=== PATIENT | female | born 1960 | race Caucasian/White ===

== ENCOUNTER 2022-07-10 22:23 | Emergency (ER) | payer OTHER ==
--- OUTSIDE RECORDS SUMMARY | 2022-07-10 22:29 | EXTERNAL MEDICAL SUMMARY RPT | Continuity of Care Document ---
:1960 Author Organization [facility] Address [address] [place] [address] Phone Care Team Providers Name Role Phone Unavailable Unavailable Unavailable Nalty, Alexa Unavailable Unavailable Allergies and Intolerances date description facility type (no date) [facility] (unknown) Encounters No information. Functional Status No information. Immunizations No information. Medications date description facility 2022-06-22 00:00 [facility] 2022-06-22 00:[address] [facility] 2022-06-22 00:[address] [facility] 2022-06-22 00:00 [facility]22-06-22 00[facility]00 [facility] Problems date description facility 2022-06-19 09:44 Encounter for preprocedural [facility] examination 2022-06-19 09:44 Contact with and (suspected) exposure [place] [id number] 2022-06-20 01:36 Encounter for preprocedural [facility] examination 2022-06-20 01:36 Contact with and (suspected) exposure [place] [id number] 2022-06-22 11:10 Personal history of colonic polyps [facility] 2022-06-22 11:14 Personal history of colonic polyps [facility] 2022-06-22 11:41 Personal history of colonic polyps [facility] 2022-06-22 14:30 Personal history of colonic polyps [facility] 2022-06-22 14:44 Personal history of colonic [facility]ps [facility] Procedures date description facility 2022-06-22 00:[address] [facility] Results/Labs test date author facility value unit interpret ation Result panel 1 (unknown) (no date) (unknown) [facility]) Result panel 2 (unknown) (no (unknown) (unknown) (no value) (units (unk nown) date) unknown) (unknown) (no (unknown) (unknown) (1) Encounter (units ( unknown) date) for preoperative unknown) screening laboratory testing for COVID-19 virus: (unknown) (no (unknown) (unknown) COVID-19 (units (u nknown) date) unknown) (unknown) (no (unknown) (unknown) 06/19/22 (units (unkno wn) date) unknown) (unknown) (no (unknown) (unknown) [id number] (units (unkno wn) date) unknown) (unknown) (no (unknown) (unknown) Age/Sex: 62 / F (units (unknown) date) Date of Service: unknown) (unknown) (no (unknown) (unknown) [place], [place] (units ( unknown) date) [id number] unknown) (unknown) (no (unknown) (unknown) Attending Dr: (units ( unknown) date) Zacarias Mckeon MD unknown) (unknown) (no (unknown) (unknown) Code(s): (units (unkno wn) date) unknown) (unknown) (no (unknown) (unknown) : 1960 (units (unknown) date) Acct:[id number] unknown) (unknown) (no (unknown) (unknown) Dept at (units (unkno wn) date) . unknown) (unknown) (no (unknown) (unknown) Documented By: (units (unknown) date) Zacarias Mckeon MD unknown) 06/19/22 0941 (unknown) (no (unknown) (unknown) Draft (units (unkno wn) date) unknown) (unknown) (no (unknown) (unknown) Evaluation/Scree (units (unknown) date) arleen for possible unknown) COVID-19 completed?: Yes- COVID-19 CPT (unknown) (no (unknown) (unknown) Intake Note: (units (u nknown) date) unknown) (unknown) (no (unknown) (unknown) Intake performed (units (unknown) date) by: Yecenia Arroyo unknown) (unknown) (no (unknown) (unknown) Intake (units (unkno wn) date) unknown) (unknown) (no (unknown) (unknown) Intake- Clincial (units (unknown) date) Staff unknown) (unknown) (no (unknown) (unknown) [facility] (units (unknown) date) unknown) (unknown) (no (unknown) (unknown) Loc: [facility] (units (unkno wn) date) unknown) (unknown) (no (unknown) (unknown) Note (units (unkno wn) date) unknown) (unknown) (no (unknown) (unknown) Nurse Office (units (u nknown) date) Visit unknown) (unknown) (no (unknown) (unknown) Patient: (units (unkno wn) date) Molly Wyman unknown) MR#: [id number] (unknown) (no (unknown) (unknown) Pt came in for a (units (unknown) date) pre procedure unknown) covid test. Denied any covid symptoms. Explained (unknown) (no (unknown) (unknown) Reason For Visit (units (unknown) date) unknown) (unknown) (no (unknown) (unknown) Signed By: (units (unk nown) date) unknown) (unknown) (no (unknown) (unknown) This note may (units ( unknown) date) have been all or unknown) partially generated using voice recognition (unknown) (no (unknown) (unknown) Visit Diagnosis (units (unknown) date) unknown) (unknown) (no (unknown) (unknown) Visit Reasons: (units (unknown) date) [facility] unknown) (unknown) (no (unknown) (unknown) Z01.812 - (units (unkn own) date) Encounter for unknown) preprocedural laboratory examination; Z20.822 - Contact (unknown) (no (unknown) (unknown) covid test to (units ( unknown) date) pt. [place] unknown) well. (unknown) (no (unknown) (unknown) have occurred. (units (unknown) date) If there are any unknown) questions, please contact the Medical Records (unknown) (no (unknown) (unknown) may occur. (units (unk nown) date) Occasional unknown) wrong-word or 'sound-alike' substitutions may have (unknown) (no (unknown) (unknown) occurred due to (units (unknown) date) the inherent unknown) limitations of voice recognition software. Please (unknown) (no (unknown) (unknown) read the note (units ( unknown) date) carefully and unknown) recognize, using context, where these substitutions (unknown) (no (unknown) (unknown) software. 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 (unknown) (no (unknown) (unknown) with and (units (unkno wn) date) (suspected) unknown) exposure to covid-19 Result panel 3 (unknown) (no date) (unknown) (unknown) Negative (units (unkn own) unknown) (unknown) (no date) (unknown) (unknown) Negative (units (unkn own) unknown) Result panel 4 (unknown) (no (unknown) (unknown) (no value) (units (unk nown) date) unknown) (unknown) (no (unknown) (unknown) (1) Encounter (units ( unknown) date) for preoperative unknown) screening laboratory testing for COVID-19 virus: (unknown) (no (unknown) (unknown) COVID-19 (units (u nknown) date) unknown) (unknown) (no (unknown) (unknown) 06/19/22 1149 (units ( unknown) date) unknown) (unknown) (no (unknown) (unknown) 06/19/22 (units (unkno wn) date) unknown) (unknown) (no (unknown) (unknown) [id number] (units (unkno wn) date) unknown) (unknown) (no (unknown) (unknown) Age/Sex: 62 / F (units (unknown) date) Date of Service: unknown) (unknown) (no (unknown) (unknown) [place], [place] (units ( unknown) date) [address] unknown) (unknown) (no (unknown) (unknown) Attending Dr: (units ( unknown) date) Zacarias Mckeon MD unknown) (unknown) (no (unknown) (unknown) Code(s): (units (unkno wn) date) unknown) (unknown) (no (unknown) (unknown) : 1960 (units (unknown) date) Acct:[id number] unknown) (unknown) (no (unknown) (unknown) Dept at (units (unkno wn) date) . unknown) (unknown) (no (unknown) (unknown) Documented By: (units (unknown) date) Zacarias Mckeon MD unknown) 06/19/22 0941 (unknown) (no (unknown) (unknown) Evaluation/Scree (units (unknown) date) arleen for possible unknown) COVID-19 completed?: Yes- COVID-19 CPT (unknown) (no (unknown) (unknown) Intake Note: (units (u nknown) date) unknown) (unknown) (no (unknown) (unknown) Intake performed (units (unknown) date) by: Yecenia Arroyo unknown) (unknown) (no (unknown) (unknown) Intake (units (unkno wn) date) unknown) (unknown) (no (unknown) (unknown) Intake- Clincial (units (unknown) date) Staff unknown) (unknown) (no (unknown) (unknown) [facility] (units (unknown) date) unknown) (unknown) (no (unknown) (unknown) Loc: [facility] (units (unkno wn) date) unknown) (unknown) (no (unknown) (unknown) Note (units (unkno wn) date) unknown) (unknown) (no (unknown) (unknown) Nurse Office (units (u nknown) date) Visit unknown) (unknown) (no (unknown) (unknown) Patient: (units (unkno wn) date) Molly Wyman unknown) MR#: [id number] (unknown) (no (unknown) (unknown) Pt came in for a (units (unknown) date) pre procedure unknown) covid test. Denied any covid symptoms. Explained (unknown) (no (unknown) (unknown) Reason For Visit (units (unknown) date) unknown) (unknown) (no (unknown) (unknown) Signed By: (units (unk nown) date) <Electronically unknown) signed by Zacarias Mckeon MD> (unknown) (no (unknown) (unknown) Signed (units (unkno wn) date) unknown) (unknown) (no (unknown) (unknown) This note may (units ( unknown) date) have been all or unknown) partially generated using voice recognition (unknown) (no (unknown) (unknown) Visit Diagnosis (units (unknown) date) unknown) (unknown) (no (unknown) (unknown) Visit Reasons: (units (unknown) date) [facility] unknown) (unknown) (no (unknown) (unknown) Z01.812 - (units (unkn own) date) Encounter for unknown) preprocedural laboratory examination; Z20.822 - Contact (unknown) (no (unknown) (unknown) covid test to (units ( unknown) date) pt. [place] unknown) well. (unknown) (no (unknown) (unknown) have occurred. (units (unknown) date) If there are any unknown) questions, please contact the Medical Records (unknown) (no (unknown) (unknown) may occur. (units (unk nown) date) Occasional unknown) wrong-word or 'sound-alike' substitutions may have (unknown) (no (unknown) (unknown) occurred due to (units (unknown) date) the inherent unknown) limitations of voice recognition software. Please (unknown) (no (unknown) (unknown) read the note (units ( unknown) date) carefully and unknown) recognize, using context, where these substitutions (unknown) (no (unknown) (unknown) software. 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 (unknown) (no (unknown) (unknown) with and (units (unkno wn) date) (suspected) unknown) exposure to covid-19 Result panel 5 (unknown) (no date) (unknown) (unknown) (no value) (units 191 39-5 unknown) (unknown) (no date) (unknown) (unknown) (no value) (units 226 33-2 unknown) (unknown) (no date) (unknown) (unknown) (no value) (units 226 34-0 unknown) (unknown) (no date) (unknown) (unknown) (no value) (units 226 37-3 unknown) (unknown) (no date) (unknown) (unknown) (no value) (units 495 60-6 unknown) (unknown) (no date) (unknown) (unknown) (no value) (units 527 97-8 unknown) (unknown) (no date) (unknown) (unknown) (no value) (units (un known) unknown) (unknown) (no date) (unknown) (unknown) (no value) (units (un known) unknown) (unknown) (no date) (unknown) (unknown) (no value) (units (un known) unknown) (unknown) (no date) (unknown) (unknown) (no value) (units (un known) unknown) (unknown) (no date) (unknown) (unknown) (no value) (units (un known) unknown) (unknown) (no date) (unknown) (unknown) (no value) (units (un known) unknown) (unknown) (no date) (unknown) (unknown) Comment: (units 33672 -1 unknown) (unknown) (no date) (unknown) (unknown) Comment: (units (unkn own) unknown) Result panel 6 (unknown) (no (unknown) (unknown) (no value) (units (unk nown) date) unknown) (unknown) (no (unknown) (unknown) (Victoza 3-Petey) (units (unknown) date) unknown) (unknown) (no (unknown) (unknown) (past 8 hours): (units (unknown) date) unknown) (unknown) (no (unknown) (unknown) 06/22/22 1219 (units ( unknown) date) unknown) (unknown) (no (unknown) (unknown) 06/22/22 (units (unkno wn) date) unknown) (unknown) (no (unknown) (unknown) [id number] (units (unkno wn) date) unknown) (unknown) (no (unknown) (unknown) 11:39 (units (unkno wn) date) unknown) (unknown) (no (unknown) (unknown) 62-year-old (units (un known) date) female with a unknown) personal history of colon polyps. Surveillance (unknown) (no (unknown) (unknown) Age/Sex: 62 / F (units (unknown) date) unknown) (unknown) (no (unknown) (unknown) Allergies (units (unkn own) date) unknown) (unknown) (no (unknown) (unknown) Allergy/AdvReac (units (unknown) date) Type Severity unknown) Reaction Status Date / Time (unknown) (no (unknown) (unknown) Appearance: (units (un known) date) grossly normal unknown) (unknown) (no (unknown) (unknown) Assessment + (units (u nknown) date) Plan narrative: unknown) (unknown) (no (unknown) (unknown) Assessment + (units (u nknown) date) Plan unknown) (unknown) (no (unknown) (unknown) Blood Pressure (units (unknown) date) 130/75 unknown) (unknown) (no (unknown) (unknown) Cardio (units (unkno wn) date) unknown) (unknown) (no (unknown) (unknown) Chest (units (unkno wn) date) unknown) (unknown) (no (unknown) (unknown) Chest: normal (units ( unknown) date) inspection of unknown) the chest (unknown) (no (unknown) (unknown) Chief (units (unkno wn) date) complaint: unknown) Colonoscopy (unknown) (no (unknown) (unknown) Const (units (unkno wn) date) unknown) (unknown) (no (unknown) (unknown) Critical Care (units ( unknown) date) time: unknown) (unknown) (no (unknown) (unknown) : 1960 (units (unknown) date) Acct:[id number] unknown) (unknown) (no (unknown) (unknown) Date Patient (units (u nknown) date) Seen: 06/22/22 unknown) (unknown) (no (unknown) (unknown) Date of (units (unkno wn) date) Service: unknown) 06/22/22 (unknown) (no (unknown) (unknown) Effort + (units (unkno wn) date) Inspection: unknown) normal respiratory effort (unknown) (no (unknown) (unknown) Exam (units (unkno wn) date) unknown) (unknown) (no (unknown) (unknown) Extrem (units (unkno wn) date) unknown) (unknown) (no (unknown) (unknown) Eyes (units (unkno wn) date) unknown) (unknown) (no (unknown) (unknown) Family + Social (units (unknown) date) History unknown) (unknown) (no (unknown) (unknown) GI (units (unkno wn) date) unknown) (unknown) (no (unknown) (unknown) General: (units (unkno wn) date) appearance unknown) normal, both eyes and all related structures (unknown) (no (unknown) (unknown) General: (units (unkno wn) date) cooperative unknown) (unknown) (no (unknown) (unknown) General: no (units (un known) date) rashes or unknown) lesions noted (unknown) (no (unknown) (unknown) General: normal (units (unknown) date) to inspection unknown) and no pedal edema (unknown) (no (unknown) (unknown) General: (units (unkno wn) date) patient alert unknown) and patient awake (unknown) (no (unknown) (unknown) HENMT (units (unkno wn) date) unknown) (unknown) (no (unknown) (unknown) Head: normal to (units (unknown) date) inspection unknown) (unknown) (no (unknown) (unknown) History + (units (unkn own) date) Physical Report unknown) (unknown) (no (unknown) (unknown) History of (units (unk nown) date) Present Illness unknown) (unknown) (no (unknown) (unknown) Home (units (unkno wn) date) Medications and unknown) Allergies (unknown) (no (unknown) (unknown) Home (units (unkno wn) date) Medications unknown) (unknown) (no (unknown) (unknown) I spent a total (units (unknown) date) of [] minutes of unknown) critical care time on this patient's care (unknown) (no (unknown) (unknown) Inspection: (units (un known) date) normal to unknown) inspection (unknown) (no (unknown) (unknown) [facility] (units (unknown) date) [address] [place] [address] unknown) [place] [address] (unknown) (no (unknown) (unknown) Medication (units (unk nown) date) Instructions unknown) Recorded Confirmed Type (unknown) (no (unknown) (unknown) Meds (units (unkno wn) date) unknown) (unknown) (no (unknown) (unknown) Narrative: (units (unk nown) date) unknown) (unknown) (no (unknown) (unknown) Neck (units (unkno wn) date) unknown) (unknown) (no (unknown) (unknown) Neck: normal (units (u nknown) date) visual unknown) inspection (unknown) (no (unknown) (unknown) Neuro (units (unkno wn) date) unknown) (unknown) (no (unknown) (unknown) Oxygen Delivery (units (unknown) date) Method Room Air unknown) (unknown) (no (unknown) (unknown) Patient History (units (unknown) date) unknown) (unknown) (no (unknown) (unknown) Patient: (units (unkno wn) date) Molly Wyman unknown) MR#: [id number] (unknown) (no (unknown) (unknown) Penicillins (units (un known) date) Allergy Verified unknown) 06/22/22 11:39 (unknown) (no (unknown) (unknown) Personal (units (unkno wn) date) history of unknown) adenomatous colon polyps (unknown) (no (unknown) (unknown) Provider: (units (unkn own) date) Hola Gordon unknown) (unknown) (no (unknown) (unknown) Psych (units (unkno wn) date) unknown) (unknown) (no (unknown) (unknown) Pulse Oximetry (units (unknown) date) 98 unknown) (unknown) (no (unknown) (unknown) Pulse Rate 75 (units ( unknown) date) unknown) (unknown) (no (unknown) (unknown) ROS: Yes All (units (u nknown) date) systems reviewed unknown) with the patient and are negative except as (unknown) (no (unknown) (unknown) Rate: regular (units ( unknown) date) rate unknown) (unknown) (no (unknown) (unknown) Resp (units (unkno wn) date) unknown) (unknown) (no (unknown) (unknown) Respiratory (units (un known) date) Rate 20 unknown) (unknown) (no (unknown) (unknown) Review of (units (unkn own) date) Systems unknown) (unknown) (no (unknown) (unknown) Signed (units (unkno wn) date) By:<Electronical unknown) ly signed by Hola Gordon MD> (unknown) (no (unknown) (unknown) Skin (units (unkno wn) date) unknown) (unknown) (no (unknown) (unknown) Smoking Status (units (unknown) date) Never smoker unknown) (unknown) (no (unknown) (unknown) Social History: (units (unknown) date) unknown) (unknown) (no (unknown) (unknown) Substance Use (units ( unknown) date) Type does not unknown) use (unknown) (no (unknown) (unknown) Temperature (units (un known) date) 98.5 F unknown) (unknown) (no (unknown) (unknown) Time Patient (units (u nknown) date) Seen: 12:18 unknown) (unknown) (no (unknown) (unknown) Time Spent With (units (unknown) date) Patient unknown) (unknown) (no (unknown) (unknown) Tobacco + (units (unkn own) date) Substance use: unknown) (unknown) (no (unknown) (unknown) Vital Signs (units (un known) date) unknown) (unknown) (no (unknown) (unknown) alcohol intake (units (unknown) date) frequency a few unknown) times a month (unknown) (no (unknown) (unknown) atorvastatin 40 (units (unknown) date) mg tablet 40 mg unknown) PO DAILY 06/22/22 06/22/22 History (unknown) (no (unknown) (unknown) colonoscopy is (units (unknown) date) pursued today. unknown) (unknown) (no (unknown) (unknown) fluoxetine 40 (units ( unknown) date) mg capsule 40 mg unknown) PO DAILY 06/22/22 06/22/22 History (unknown) (no (unknown) (unknown) household (units (unkn own) date) members spouse unknown) (unknown) (no (unknown) (unknown) insulin (units (unkno wn) date) glargine 100 unknown) unit/mL 50 unit SUBCUT QPM 06/22/22 06/22/22 History (unknown) (no (unknown) (unknown) liraglutide 0.6 (units (unknown) date) mg/0.1 mL (18 unknown) mg/3 1.8 mg SUBCUT DAILY 06/22/22 06/22/22 History (unknown) (no (unknown) (unknown) lisinopril 10 (units ( unknown) date) mg tablet 10 mg unknown) PO DAILY 06/22/22 06/22/22 History (unknown) (no (unknown) (unknown) mL) (units (unkno wn) date) subcutaneous pen unknown) injector (unknown) (no (unknown) (unknown) otherwise (units (unkn own) date) documented unknown) (unknown) (no (unknown) (unknown) propranolol 20 (units (unknown) date) mg tablet 20 mg unknown) PO BID 01/09/23 01/09/23 History (unknown) (no (unknown) (unknown) subcutaneous (units (u nknown) date) solution unknown) (unknown) (no (unknown) (unknown) today; this (units (un known) date) time is unknown) exclusive of procedural time. Result panel 7 (unknown) (no date) (unknown) (unknown) (no value) (units (un known) unknown) (unknown) (no date) (unknown) (unknown) 06/22/22 1220 (units (unknown) unknown) (unknown) (no date) (unknown) (unknown) [id number] (units (unkn own) unknown) (unknown) (no date) (unknown) (unknown) ASA Class (for (units (unknown) procedural unknown) sedation): II (unknown) (no date) (unknown) (unknown) Age/Sex: 62 / (units (unknown) F unknown) (unknown) (no date) (unknown) (unknown) COVID-19 (units (unkn own) status: unknown) Negative (unknown) (no date) (unknown) (unknown) COVID-19 (units (unkn own) unknown) (unknown) (no date) (unknown) (unknown) Changes to (units (un known) H+P: No unknown) (unknown) (no date) (unknown) (unknown) Criteria for (units ( unknown) continued unknown) procedure: Possibility delay results in more complex (unknown) (no date) (unknown) (unknown) : (units (unkn own) 1960 unknown) Acct:[id number] (unknown) (no date) (unknown) (unknown) Date of (units (unkn own) Service: unknown) 06/22/22 (unknown) (no date) (unknown) (unknown) History + (units (unk nown) Physical unknown) reviewed/Exam performed by Physician: Yes (unknown) (no date) (unknown) (unknown) Interval Note (units (unknown) unknown) (unknown) (no date) (unknown) (unknown) [place] (units (unkn own) [facility] [address] unknown) [address] [place] [id number] (unknown) (no date) (unknown) (unknown) Patient: (units (unkn own) Molly Wyman unknown) MR#: [id number] (unknown) (no date) (unknown) (unknown) Pre-operative (units (unknown) Note unknown) (unknown) (no date) (unknown) (unknown) Provider: (osiel (unk nova) Hola Gordon unknown) (unknown) (no date) (unknown) (unknown) Result (units (unkn own) date/Date unknown) tested (Pos, Neg/Pending): 06/19/22 (unknown) (no date) (unknown) (unknown) Signed (units (unkn own) By:<Electronica unknown) lly signed by Hola Gordon MD> (unknown) (no date) (unknown) (unknown) future surgery (units (unknown) or treatment unknown) Result panel 8 (unknown) (no (unknown) (unknown) (no value) (units (unk nown) date) unknown) (unknown) (no (unknown) (unknown) (units (unknown) date) unknown) (unknown) (no (unknown) (unknown) Performed at: (units (unknown) date) 01 unknown) (unknown) (no (unknown) (unknown) . 01 (units (unkno wn) date) unknown) (unknown) (no (unknown) (unknown) . (units (unkno wn) date) unknown) (unknown) (no (unknown) (unknown) /ANTHONY 06/23/2022 (units (unknown) date) 1022 Local unknown) (unknown) (no (unknown) (unknown) [address] [place] [address] (units (unknown) date) unknown) (unknown) (no (unknown) (unknown) [phone] (units (unkno wn) date) unknown) (unknown) (no (unknown) (unknown) [address] [place] [address] (units (unknown) date) [address], unknown) [place], [place] [id number] (unknown) (no (unknown) (unknown) [id number], [id number], (units (unknown) date) [id number] unknown) (unknown) (no (unknown) (unknown) A. Received in (units (unknown) date) formalin and unknown) labeled 'transverse colon polyp x2', are (unknown) (no (unknown) (unknown) A. Transverse (units ( unknown) date) Colon Polyps: unknown) (unknown) (no (unknown) (unknown) [place] (units ( unknown) date) [address] unknown) (unknown) (no (unknown) (unknown) B. Descending (units ( unknown) date) Colon Polyps: unknown) (unknown) (no (unknown) (unknown) B. Received in (units (unknown) date) formalin and unknown) labeled 'descending colon polyp x2', are two (unknown) (no (unknown) (unknown) C. Given the (units (u nknown) date) presence of unknown) high-grade dysplasia and piecemeal sampling, (unknown) (no (unknown) (unknown) C. Received in (units (unknown) date) formalin and unknown) labeled 'rectosigmoid colon polyp', are three (unknown) (no (unknown) (unknown) C. Rectosigmoid (units (unknown) date) Colon Polyp: unknown) (unknown) (no (unknown) (unknown) CPT . (units (unkno wn) date) unknown) (unknown) (no (unknown) (unknown) Collection Date: (units (unknown) date) 06/22/22 unknown) (unknown) (no (unknown) (unknown) Comment: (units (unkno wn) date) unknown) (unknown) (no (unknown) (unknown) D12.3, D12.4, (units ( unknown) date) D12.7 unknown) (unknown) (no (unknown) (unknown) DD/ (units (unknown) date) 0000 unknown) (unknown) (no (unknown) (unknown) Date of : (units (unknown) date) 1960 Admit unknown) Date: 06/22/22 (unknown) (no (unknown) (unknown) Diagnosis: (units (unk nown) date) unknown) (unknown) (no (unknown) (unknown) Dictated By: (units (u nknown) date) Iban Abad unknown) (unknown) (no (unknown) (unknown) Electronically (units (unknown) date) signed: . unknown) (unknown) (no (unknown) (unknown) [place] (units (unkno wn) date) description: . unknown) (unknown) (no (unknown) (unknown) [facility] (units (unknown) date) unknown) (unknown) (no (unknown) (unknown) [facility] (units ( unknown) date) Number: unknown) [id number] (unknown) (no (unknown) (unknown) [facility] (units (unknown) date) [place] [facility] unknown) (unknown) (no (unknown) (unknown) MD [place] (units (unkn own) date) Agnieszka [facility] Phone: unknown) [id number] (unknown) (no (unknown) (unknown) (units (unknown) date) Dictating Dr: unknown) Iban Abad MD (unknown) (no (unknown) (unknown) MRV 06/24/2022 (units (unknown) date) 1458 Local unknown) (unknown) (no (unknown) (unknown) Material (units (unkno wn) date) submitted: . unknown) (unknown) (no (unknown) (unknown) Iban Blue (units (unkn own) date) MD oPllo, PhD, unknown) Pathologist (unknown) (no (unknown) (unknown) NPI- [id number] (units (unknown) date) unknown) (unknown) (no (unknown) (unknown) No malignancy (units ( unknown) date) identified. unknown) (unknown) (no (unknown) (unknown) Ordering (units (unkno wn) date) Physician: unknown) Hola Gordon MD (unknown) (no (unknown) (unknown) PART A: colon - (units (unknown) date) TRANSVERSE COLON unknown) POLYP X 2 (unknown) (no (unknown) (unknown) PART B: colon - (units (unknown) date) DESCENDING COLON unknown) POLYP X 2 (unknown) (no (unknown) (unknown) PART C: (units (unkno wn) date) rectosigmoid unknown) junction - RECTAL SIGMOID COLON POLYP (unknown) (no (unknown) (unknown) Pathologist (units (un known) date) provided ICD-10: unknown) (unknown) (no (unknown) (unknown) Pathology (units (unkn own) date) Diagnostic Report unknown) (unknown) (no (unknown) (unknown) Patient name: (units ( unknown) date) Molly Wyman unknown) (unknown) (no (unknown) (unknown) Signed By: (units (unk nown) date) 06/24/222105 unknown) (unknown) (no (unknown) (unknown) Signed (units (unkno wn) date) unknown) (unknown) (no (unknown) (unknown) Specimen (units (unkno wn) date) Comment: 2055 unknown) (unknown) (no (unknown) (unknown) Specimen (units (unkno wn) date) Comment: A unknown) courtesy copy of this report has been sent to [phone], (unknown) (no (unknown) (unknown) TD/TT: 06/24/22 (units (unknown) date) 2105 unknown) (unknown) (no (unknown) (unknown) Tubular adenoma (units (unknown) date) x2. unknown) (unknown) (no (unknown) (unknown) Tubular adenomas (units (unknown) date) (two polyps unknown) removed). 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 All (units (unknown) date) fragments are unknown) totally submitted in cassette A1. (unknown) (no (unknown) (unknown) assure complete (units (unknown) date) removal of the unknown) lesion, and a shortened surveillance (unknown) (no (unknown) (unknown) bisected and (units (u nknown) date) totally submitted unknown) in cassette C4 and the smallest fragment (unknown) (no (unknown) (unknown) comment. (units (unkno wn) date) unknown) (unknown) (no (unknown) (unknown) correlation with (units (unknown) date) the endoscopic unknown) findings before and after polypectomy to (unknown) (no (unknown) (unknown) fragments of wilkes (units (unknown) date) soft tissue unknown) measuring 0.5 x 0.4 x 0.3 cm to 0.5 x 0.2 (unknown) (no (unknown) (unknown) fragments of wilkes (units (unknown) date) soft tissue. The unknown) fragments measure 1.9 x 1.5 x 0.8 cm (unknown) (no (unknown) (unknown) interval are (units (u nknown) date) recommended. unknown) (unknown) (no (unknown) (unknown) is bisected and (units (unknown) date) totally submitted unknown) in cassette C5. (CP:[id number]) (unknown) (no (unknown) (unknown) multiple (units (unkno wn) date) fragments of wilkes unknown) soft tissue measuring 1.8 x 0.5 x 0.1 cm, in (unknown) (no (unknown) (unknown) to 0.8 x 0.8 x (units (unknown) date) 0.6 cm. The unknown) largest fragment is serially sectioned and (unknown) (no (unknown) (unknown) totally (units (unkno wn) date) submitted in unknown) cassettes C1-C3. The second largest fragment is (unknown) (no (unknown) (unknown) x 0.2 cm. The (units ( unknown) date) fragments are unknown) totally submitted in cassette B1. Result panel 9 (unknown) (no (unknown) (unknown) (no value) (units (unk nown) date) unknown) (unknown) (no (unknown) (unknown) 06/22/22 1406 (units ( unknown) date) unknown) (unknown) (no (unknown) (unknown) [id number] (units (unkno wn) date) unknown) (unknown) (no (unknown) (unknown) 1. Multiple (units (un known) date) colon polyps unknown) (unknown) (no (unknown) (unknown) 2. Large (units (unkno wn) date) rectosigmoid unknown) polyp (unknown) (no (unknown) (unknown) Adult (units (unkno wn) date) colonoscope unknown) (unknown) (no (unknown) (unknown) After the risks (units (unknown) date) and benefits were unknown) explained, written and verbal informed consent (unknown) (no (unknown) (unknown) Age/Sex: 62 / F (units (unknown) date) unknown) (unknown) (no (unknown) (unknown) Await (units (unkno wn) date) histopathology to unknown) determine the most appropriate surveillance interval. (unknown) (no (unknown) (unknown) Bowel prep (units (unk nown) date) adequate unknown) (unknown) (no (unknown) (unknown) Colonoscopy Note (units (unknown) date) unknown) (unknown) (no (unknown) (unknown) Colonoscopy with (units (unknown) date) hot snare unknown) polypectomy, Rama ink injection, and Endoclip (unknown) (no (unknown) (unknown) Complications: (units (unknown) date) none unknown) (unknown) (no (unknown) (unknown) Comprehensive (units ( unknown) date) imaging was unknown) accomplished throughout the rectum including the (unknown) (no (unknown) (unknown) : 1960 (units (unknown) date) Acct:[id number] unknown) (unknown) (no (unknown) (unknown) Date of Service: (units (unknown) date) 06/22/22 unknown) (unknown) (no (unknown) (unknown) Date of (units (unkno wn) date) procedure: unknown) 06/22/22 (unknown) (no (unknown) (unknown) Disposition: (units (u nknown) date) PACU unknown) (unknown) (no (unknown) (unknown) Endoscopic (units (unk nown) date) diagnosis unknown) (unknown) (no (unknown) (unknown) If all histology (units (unknown) date) is entirely unknown) benign, I would recommend a six-month follow-up (unknown) (no (unknown) (unknown) Impression: (units (un known) date) unknown) (unknown) (no (unknown) (unknown) In the (units (unkno wn) date) transverse colon unknown) there were 2 small polyps removed with cold snare. The (unknown) (no (unknown) (unknown) Indications: (units (u nknown) date) unknown) (unknown) (no (unknown) (unknown) [facility] (units (unknown) date) [address] unknown) [place] [address] (unknown) (no (unknown) (unknown) Operative (units (unkn own) date) Date/Time/Diagnos unknown) es (unknown) (no (unknown) (unknown) Patient: (units (unkno wn) date) Molly Wyman unknown) MR#: [id number] (unknown) (no (unknown) (unknown) Personal history (units (unknown) date) of colon polyps unknown) (unknown) (no (unknown) (unknown) Plan for (units (unkno wn) date) aftercare: unknown) (unknown) (no (unknown) (unknown) Post-op (units (unkno wn) date) diagnosis: same unknown) (unknown) (no (unknown) (unknown) Post-procedure (units (unknown) date) unknown) (unknown) (no (unknown) (unknown) Pre-op (units (unkno wn) date) diagnosis: unknown) Personal history of colon polyps (unknown) (no (unknown) (unknown) Procedure + (units (un known) date) Clinicians unknown) (unknown) (no (unknown) (unknown) Procedure Notes (units (unknown) date) unknown) (unknown) (no (unknown) (unknown) Procedure in (units (u nknown) date) detail: unknown) (unknown) (no (unknown) (unknown) Prolonged (units (unkn own) date) procedure time. unknown) Complicated challenging large rectosigmoid polyp. (unknown) (no (unknown) (unknown) Provider: (units (unkn own) date) Hola Gordon MD unknown) (unknown) (no (unknown) (unknown) SCOAP/Timeout: (units (unknown) date) Done unknown) (unknown) (no (unknown) (unknown) Same procedure (units (unknown) date) as scheduled: Yes unknown) (unknown) (no (unknown) (unknown) Scope withdrawal (units (unknown) date) time: 35 minutes unknown) (unknown) (no (unknown) (unknown) Sedation (units (unkno wn) date) minutes: 42 unknown) (unknown) (no (unknown) (unknown) Signed (units (unkno wn) date) By:<Electronicall unknown) y signed by Hola Gordon MD> (unknown) (no (unknown) (unknown) Study performed: (units (unknown) date) unknown) (unknown) (no (unknown) (unknown) Surgeon: Hola (units (unknown) date) Heidi unknown) (unknown) (no (unknown) (unknown) Time of (units (unkno wn) date) procedure: 14:01 unknown) (unknown) (no (unknown) (unknown) Twenty-two (units (unk nown) date) modifier is unknown) therefore requested. (unknown) (no (unknown) (unknown) abandoned. A (units (u nknown) date) small unknown) approximately 0.5 mL Rama ink tattoo was placed just distal (unknown) (no (unknown) (unknown) about 18 cm from (units (unknown) date) the anal verge unknown) was a semi pedunculated semi sessile polyp (unknown) (no (unknown) (unknown) and attempted (units ( unknown) date) but would not unknown) rotate into an appropriate position so this was (unknown) (no (unknown) (unknown) appeared to be (units (unknown) date) completely unknown) excised after 3 separate excisions using the hot (unknown) (no (unknown) (unknown) approximately (units ( unknown) date) 20-22 mm in unknown) greatest dimension. Initial attempt at a singular hot (unknown) (no (unknown) (unknown) bleeding at the (units (unknown) date) time of the unknown) procedure. A 3rd Endo clip was initially considered (unknown) (no (unknown) (unknown) dentate line. (units ( unknown) date) The colon was unknown) decompressed, the scope was then removed from the (unknown) (no (unknown) (unknown) deployment (units (unk nown) date) unknown) (unknown) (no (unknown) (unknown) details. Digital (units (unknown) date) rectal unknown) examination was accomplished. The scope was introduced (unknown) (no (unknown) (unknown) exam considering (units (unknown) date) the piecemeal unknown) excision format of the rectosigmoid polyp. (unknown) (no (unknown) (unknown) identified by (units ( unknown) date) the appendiceal unknown) orifice and ileocecal valve. The scope was slowly (unknown) (no (unknown) (unknown) into the patient (units (unknown) date) and advanced unknown) under direct visualization to the cecum as (unknown) (no (unknown) (unknown) larger of the 2 (units (unknown) date) was 5-6 mm in unknown) greatest dimension. In the descending colon there (unknown) (no (unknown) (unknown) patient who (units (un known) date) tolerated the unknown) procedure well. (unknown) (no (unknown) (unknown) snare (units (unkno wn) date) polypectomy unknown) revealed that there was residual polyp remaining. Polyp (unknown) (no (unknown) (unknown) snare. The (units (unk nown) date) defect was closed unknown) with 2 endo clips. There was no post polypectomy (unknown) (no (unknown) (unknown) the left lateral (units (unknown) date) decubitus unknown) position. Please see anesthesia note for sedation (unknown) (no (unknown) (unknown) to the lesion (units ( unknown) date) that had been unknown) removed. (unknown) (no (unknown) (unknown) was obtained. (units ( unknown) date) The patient was unknown) brought into the procedure room and placed into (unknown) (no (unknown) (unknown) were 2 7-8 mm (units ( unknown) date) sessile polyps unknown) removed with hot snare. In the rectosigmoid region (unknown) (no (unknown) (unknown) withdrawn to (units (u nknown) date) carefully examine unknown) the mucosa for any defects or lesions. Social History date description facility 2022-06-19 00:[address] [facility] 2022-06-22 00:00 Never smoked tobacco (finding) [facility] Vital Signs date measurement value units 2022-06-22 00:00 BMI 39.9 kg/m2 2022-06-22 00:00 BP_diastolic 82 mmHg 2022-06-22 00:00 BP_systolic 131 mmHg 2022-06-22 00:00 heart_rate 82 /min 2022-06-22 00:00 height_metric 165.1 cm 2022-06-22 00:00 height_standard 65 in 2022-06-22 00:00 o2_saturation 100 % 2022-06-22 00:00 respiration_rate 12 /min 2022-06-22 00:00 temperature_metric 36.11 C 2022-06-22 00:00 temperature_standard 97 F 2022-06-22 00:00 weight_metric 108.86 kg 2022-06-22 00:00 weight_standard 240 lb
[2022-07-10] MEDS ORDERED: SODIUM CHLORIDE 0.9% 1,000 ML IV STA ×2 (22:50→23:22)
--- NOTE | 2022-07-10 22:53 | ED Physician Documentation ---
History of Present Illness - Stated complaint Stated Complaint: HIGH BLOOD SUGAR - Chief complaint Chief Complaint: General - History obtained from History obtained from: Patient - Additonal information Additional information: Patient is a 62-year-old insulin-dependent diabetic presenting for evaluation of elevated glucose. Patient had a cortisone shot this morning for Right shoulder pain that the orthopedic doctors in [place] are attempting to treat nonoperatively. She reports having ice cream this evening. This evening she noted feeling a little jittery and was having of frequent urination and thirst and checked her blood glucose and it was elevated above 600. She did take her nightly Lantus. She normally takes 50 units but this evening took 60 units. Patient also uses a Victoza and took 1.8 units this morning.Patient denies recent illness. She denies feeling short of breath, nausea or vomiting. Review of Systems Constitutional: denies: Fever Cardiac: denies: Chest pain / pressure Respiratory: denies: Dyspnea GI: denies: Abdominal Pain, Vomiting Musculoskeletal: denies: Back pain Neurologic: denies: Headache PD PAST MEDICAL HISTORY - Present Medications Home Medications: Ambulatory Orders Medication Instructions Recorded Confirmed Atorvastatin Calcium 40 mg PO DAILY 07/10/22 07/10/22 Fluoxetine HCl [Prozac] 40 mg PO DAILY 07/10/22 07/10/22 Insulin Glargine-Yfgn [Semglee] 50 units SUBQ QPM 07/10/22 07/10/22 Liraglutide [Victoza 2-Petey] 1.8 mg SQ DAILY 07/10/22 07/10/22 Lisinopril [Zestril] 10 mg PO DAILY 07/10/22 07/10/22 Propranolol HCl 20 mg PO DAILY 07/10/22 07/10/22 - Allergies Allergies/Adverse Reactions: Allergies Allergy/AdvReac Type Severity Reaction Status Date / Time Penicillins Allergy Rash Verified 07/10/22 22:30 PD ED PE NORMAL - General General: Alert and oriented X 3, No acute distress, Well developed/nourished - HEENT HEENT: Atraumatic - Neck Neck: Supple, no meningeal sign - Cardiac Cardiac: RRR - Respiratory Respiratory: No respiratory distress, Clear bilaterally - Abdomen Abdomen: Soft, Non tender, Non distended - Derm Derm: Warm and dry - Extremities Extremities: No edema - Neuro Neuro: Alert and oriented X 3, No motor deficit, Normal speech Results - Vitals Vitals: Vital Signs - 24 hr 07/10/22 07/11/22 07/11/22 22:31 00:37 01:27 Temperature 36.8 C Heart Rate 79 69 71 Respiratory 20 17 17 Rate Blood Pressure 154/76 H 149/66 H 132/68 H O2 Saturation 97 99 95 Oxygen O2 Source Room air - Labs Labs: Laboratory Tests 07/10/22 07/10/22 07/10/22 22:47 22:47 22:47 WBC 8.8 RBC 4.72 Hgb 13.5 Hct 40.5 MCV 85.8 MCH 28.6 MCHC 33.3 RDW 12.3 Plt Count 378 MPV 9.9 Neut # (Auto) 7.5 H Lymph # (Auto) 1.3 L [place] # (Auto) 0.1 Eos # (Auto) 0.0 Baso # (Auto) 0.0 Absolute Nucleated RBC 0.00 Nucleated RBC % 0.0 VBG pH 7.378 VBG pCO2 36.3 L VBG pO2 42.9 VBG HCO3 20.9 L VBG Total CO2 22.0 L VBG O2 Saturation 79.2 VBG Base Excess -3.6 L Sodium 126 L Potassium 4.2 Chloride 92 L Carbon Dioxide 21 Anion Gap 13.0 BUN 25 H Creatinine 1.2 H Estimated GFR (MDRD) 46 L Glucose 594 H* POC Whole Bld Glucose Calcium 9.3 Total Bilirubin 0.9 AST 27 ALT 35 Alkaline Phosphatase 97 Total Protein 8.2 Albumin 4.1 Globulin 4.1 Albumin/Globulin Ratio 1.0 Lipase 54 H Serum Ketones NEGATIVE 07/11/22 07/11/22 00:03 00:52 WBC RBC Hgb Hct MCV MCH MCHC RDW Plt Count MPV Neut # (Auto) Lymph # (Auto) [place] # (Auto) Eos # (Auto) Baso # (Auto) Absolute Nucleated RBC Nucleated RBC % VBG pH VBG pCO2 VBG pO2 VBG HCO3 VBG Total CO2 VBG O2 Saturation VBG Base Excess Sodium Potassium Chloride Carbon Dioxide Anion Gap BUN Creatinine Estimated GFR (MDRD) Glucose POC Whole Bld Glucose 509 H* 466 H Calcium Total Bilirubin AST ALT Alkaline Phosphatase Total Protein Albumin Globulin Albumin/Globulin Ratio Lipase Serum Ketones PD Medical Decision Making - ED course Complexity details: reviewed results, re-evaluated patient, d/w patient ED course: Patient presenting for evaluation of elevated glucose noted at home. She is essentially asymptomatic here. Her blood sugar is in the 500 range upon arrival. Labs were reviewed which do not show evidence of DKA. She does have hyperglycemia with pseudohyponatremia. Sodium appears to be within normal limits when corrected for glucose. She was given IV fluids and insulin with reduction in her glucose. Again she remained symptom-free here. As such, She appears stable for discharge with Plans to continue to monitor her glucose over the weekend. She is advised on concerning symptoms to return for. Departure - Departure Disposition: 01 Home, Self Care Clinical Impression: Hyperglycemia due to diabetes mellitus Condition: Stable Instructions: ED Hyperglycemia Diabetic Comments: You were evaluated for elevated blood sugars. You were given IV fluids and insulin to help slowly reduce your blood glucose levels. At this time you do not require hospitalization for your elevated glucose but I do recommend close monitoring over the weekend. If it anytime you develop any worsening symptoms such as shortness of breath or vomiting or have elevated readings on your glucometer (ie "high" or unreadable ) Then please return to the emergency department. Otherwise I would follow-up with your primary care doctor early next week regarding your diabetes medications. Discharge Date/Time: 07/11/22 01:29
[2022-07-10 22:57] LABS: BASOPHILS % (AUTO) 0.1 %; EOSINOPHILS % (AUTO) 0.1 %; HCT - HEMATOCRIT 40.5 % (37.0-47.0); HGB - HEMOGLOBIN 13.5 g/dL (12.0-16.0); LYMPHOCYTES # (AUTO) 1.3 10^3/uL (1.5-3.5); LYMPHOCYTES % (AUTO) 14.3 %; MEAN CORPUSCULAR HEMOGLOBIN 28.6 pg (27.0-31.0); MEAN CORPUSCULAR HGB CONC 33.3 g/dL (32.0-36.0); MEAN CORPUSCULAR VOLUME 85.8 fL (81.0-99.0); MEAN PLATELET VOLUME 9.9 fL (7.9-10.8); MONOCYTES # (AUTO) 0.1 10^3/uL (0.0-1.0); MONOCYTES % (AUTO) 0.8 %; NEUTROPHILS # (AUTO) 7.5 10^3/uL (1.5-6.6); NEUTROPHILS % (AUTO) 84.2 %; PLT - PLATELET COUNT 378 10^3/uL (130-450); RED BLOOD COUNT 4.72 10^6/uL (4.20-5.40); RED CELL DISTRIBUTION WIDTH 12.3 % (12.0-15.0); WHITE BLOOD COUNT 8.8 x10^3/uL (4.8-10.8)
[2022-07-10 22:59] LABS: VBG BASE EXCESS -3.6 mmol/L (-2 - +2); VBG HCO3 20.9 mmol/L (23-28); VBG OXYGEN SATURATION 79.2 % (60-80); VBG PCO2 36.3 mmHg (41-51); VBG PH 7.378 (7.31-7.41); VBG PO2 42.9 mmHg (25-47)
[2022-07-10 23:00] LABS: KETONES, SERUM (ACETEST) NEGATIVE (NEGATIVE)
[2022-07-10 23:14] LABS: ALBUMIN 4.1 g/dL (3.2-5.5); ALKALINE PHOSPHATASE 97 IU/L (42-121); ALT ALANINE AMINOTRANSFERASE 35 IU/L (10-60); AST ASPARTATE AMINOTRANSFERASE 27 IU/L (10-42); BILIRUBIN,TOTAL 0.9 mg/dL (0.2-1.0); BUN - BLOOD UREA NITROGEN 25 mg/dL (6-20); CALCIUM 9.3 mg/dL (8.5-10.3); CARBON DIOXIDE - CO2 21 mmol/L (21-32); CHLORIDE 92 mmol/L (101-111); CREATININE 1.2 mg/dL (0.4-1.0); GFR - MDRD 46 (>89); LIPASE 54 U/L (22-51); POTASSIUM 4.2 mmol/L (3.5-5.0); SODIUM 126 mmol/L (135-145); TOTAL PROTEIN 8.2 g/dL (6.7-8.2)
[2022-07-10 23:15] LABS: GLUCOSE 594 mg/dL (70-100)
[2022-07-10] MEDS ORDERED: INSULIN REGULAR HUMAN 100 UNIT/1 ML 10 ML MDV SUBQ STA (23:15)
[2022-07-11] MEDS ORDERED: INSULIN REGULAR HUMAN 100 UNIT/1 ML 10 ML MDV IVP STA (00:11)
[2022-07-11 01:28] VITALS: BP 132/68
== END 2022-07-11 01:29 | disposition home or self-care (01) ==
LOC: ED 22:23
DX: E11.65 Type 2 diabetes mellitus with hyperglycemia (principal); Z79.4 Long term (current) use of insulin; Z79.85 Long-term (current) use of injectable non-insulin antidiabetic drugs
CPT/HCPCS: 36415; 80053; 82009; 82803; 83690; 85025; 96360; 99284; J1815